=== PATIENT | male | born 1965 | race Caucasian/White ===

== ENCOUNTER 2019-09-28 20:47 | Emergency (ER) | payer OTHER, SELFPAY ==
[2019-09-28 20:52] VITALS: BP 154/93; PULSE 90; RESP 16; TEMP 36.6; O2SAT 96; BMI 26.4
[2019-09-28] MEDS: LACTATED RINGERS 1,000 ML 1000 ML IV (21:08)
[2019-09-28] MEDS: KETOROLAC 60 MG/2 ML VIAL 15 MG IV (21:08)
[2019-09-28 21:10] LABS: Add Manual Diff / Slide Review NO; Basophils Absolute Auto 100 /uL (0-100); Basophils Percent Auto 0.6 % (0-2); Eosinophils Absolute Auto 200 /uL (0-450); Eosinophils Percent Auto 2.5 % (2-4); Hematocrit 42.2 % (41-53); Hemoglobin 14.6 g/dL (13.5-17.5); Lymphocytes Absolute Auto 2000 /uL (1100-4500); Mean Corpuscular HGB Conc 34.5 % (30-36); Mean Corpuscular Hemoglobin 31.5 PG (26-34); Mean Corpuscular Volume 91.4 fL (80-100); Monocytes Absolute Auto 800 /uL (0-900); Monocytes Percent Auto 9.8 % (3-14); Neutrophils Absolute Auto 5400 /uL (1500-7000); Neutrophils Percent Auto 64.1 % (50-75); Platelet Count 212 X10^3/uL (150-400); Red Blood Cell Count 4.62 X10^6/uL (4.5-5.9); Red Cell Distribution Width 13.6 % (11.6-14.8); White Blood Cell Count 8.5 X10^3/uL (4.5-11.0)
[2019-09-28 21:16] LABS: BUN Creatinine Ratio 15.9 (6-22); Blood Urea Nitrogen 21 mg/dL (9-20); Calcium 9.5 mg/dL (8.4-10.2); Carbon Dioxide 26 mmol/L (22-32); Chloride 102 mmol/L (98-107); Estimated Glomerular Filt Rate 56.7 mL/min (>60); Glucose 126 mg/dL (70-100); HEMOLYSIS < 15 (0-50); Potassium 3.8 mmol/L (3.4-5.1); Sodium 136 mmol/L (137-145)
--- NOTE | 2019-09-28 21:31 | DI.CT.S_ITS ---
PROCEDURE: CT KIDNEY URETER BLADDER (KUB) INDICATIONS: R flank pain TECHNIQUE: Noncontrast 5 mm thick sections acquired from the diaphragms to the symphysis. 5 mm thick coronal and sagittal reformats were then performed. For radiation dose reduction, the following was used: automated exposure control, adjustment of mA and/or kV according to patient size. COMPARISON: None. FINDINGS: Image quality: Excellent. Lung bases: Lung bases are clear. Heart size is normal. Urinary system: Both kidneys are normal in size. No kidney stones. No hydronephrosis or perinephric fat stranding. Both ureters appear non-dilated throughout their expected courses. Bladder wall and shows mild diffuse thickening with incomplete distention. No calcified bladder stones. Other solid organs: Liver is enlarged with steatosis. Gallbladder is contracted but grossly unremarkable. Pancreas is normal in contours. Spleen is normal in size. No adrenal nodules. Peritoneum and bowel: Unenhanced bowel loops demonstrate normal wall thickness and caliber. Colonic diverticula. No free fluid or air. Nodes and vessels: No retroperitoneal or mesenteric adenopathy by size criteria. Aorta and inferior vena cava are normal in caliber. Abdominal wall: No ventral hernias. Pelvis: No free pelvic fluid. Fat-containing hernias are noted. Bones: No suspicious bony lesions. No vertebral body compression fractures. Stone attenuation measurements reference DELETE FROM FINAL REPORT Calcium oxalate: 1982-4943 HU. Hydroxyapatite: 4054-3452 HU. Uric acid: 200-450 HU. Struvite: 600-900 HU. Cystine: 600-1100 HU. IMPRESSION: 1. No nephro or ureterolithiasis. No bladder calculi. 2. Mild appearance of diffuse bladder wall thickening possibly secondary to incomplete distention. However, cystitis could have a similar imaging appearance recommend clinical correlation. Dictated by: Valarie Cheek M.D. on 09/28/2019 at 22:00 Approved by: Valarie Cheek M.D. on 09/28/2019 at 22:03
--- NOTE | 2019-09-28 22:14 | ED_ITS ---
HPI - Male Genitourinary General Chief complaint: Urogenital-Male Stated complaint: thinks has a kidney infection Time Seen by Provider: 09/28/19 20:48 Source: patient Mode of arrival: Ambulatory Limitations: no limitations History of Present Illness HPI Narrative: 53M nonsmoker with history of hypertension, hyperlipidemia, GERD and relatively frequent urinary tract infections presents with a chief complaint of a sudden onset right flank pain with some trouble urinating this evening. He denies any fever or chills. He denies any chest pain, shortness of breath, cough. He has had no exposure to persons of suspicion for COVID-19. 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 He denies any history of kidney stones. His pain is worse with motion and improves with rest. MD Complaint: dysuria and other Onset (ago): hour(s) Duration: constant Location: right flank Severity: moderate Quality: aching Relieving factors: rest Exacerbating factors: movement Associated symptoms: Reports dysuria Related Data Home Medications Medication Instructions Recorded Confirmed hydrochlorothiazide 25 mg PO DAILY 09/28/19 09/28/19 lisinopril 10 mg PO DAILY 09/28/19 09/28/19 omeprazole 20 mg PO DAILY 09/28/19 09/28/19 pravastatin 30 mg PO BEDTIME 09/28/19 09/28/19 Previous Rx's Medication Instructions Recorded cephalexin [Keflex] 500 mg PO QID 7 Days #28 cap 09/28/19 ketorolac 10 mg PO Q6H PRN #14 tab 09/28/19 Allergies Allergy/AdvReac Type Severity Reaction Status Date / Time No Known Drug Allergies Allergy Verified 09/28/19 21:09 Review of Systems Constitutional Constitutional: Denies chills, Denies fatigue, Denies fever(s), Denies frequent falls, Denies lethargy and Denies weakness Eyes Eyes: Denies change in vision, Denies eye discharge, Denies irritation and Denies loss of vision ENT Ears, Nose, Mouth, and Throat: Denies change in voice, Denies dizziness, Denies neck pain, Denies sore throat and Denies throat swelling Cardiovascular Cardiovascular: Denies chest pain, Denies irregular heart rhythm, Denies lightheadedness, Denies palpitations, Denies dyspnea, Denies dyspnea on exertion and Denies orthopnea Respiratory Respiratory: Denies cough, Denies dyspnea, Denies dyspnea on exertion and Denies wheezing Gastrointestinal Gastrointestinal: Denies abdominal pain, Denies change in bowel habits, Denies diarrhea, Denies nausea and Denies vomiting Genitourinary Genitourinary: Denies hematuria, Reports difficulty urinating, Reports flank pain, Denies urinary incontinence and Denies urinary urgency Musculoskeletal Musculoskeletal: Denies back pain, Denies muscle weakness, Denies neck pain, Denies numbness and Denies tingling Integumentary/Breasts Skin/Breast: Denies pruritus, Denies erythema, Denies rash and Denies wounds Neurologic Neurologic: Denies behavioral changes, Denies confusion, Denies dizziness, Denies frequent falls, Denies loss of vision, Denies numbness, Denies tingling and Denies weakness Psychiatric Psychiatric: Denies anxiety, Denies behavioral changes, Denies confusion, Denies depression, Denies homicidal ideation and Denies suicidal ideation Endocrine Endocrine: Denies fatigue, Denies flushing and Denies palpitations Hematologic/Lymphatic Hematologic/Lymphatic: Denies easy bruising Allergic/Immunologic Allergic/Immunologic: Denies urticaria, Denies throat swelling and Denies wheezing Patient History Medical History Urinary tract infection (Acute) alcohol intake frequency: a few times a month Substance Use Type: does not use Exam Narrative Exam Narrative: GENERAL: [53] year old patient appears stated age. Well- nourished, well-developed patient, in mild distress. Obviously uncomfortable, moving gingerly HEAD: Atraumatic. Normocephalic. EYES: Pupils equal round and reactive. Extraocular motions intact. No scleral icterus. No injection or drainage. ENT: Nose without bleeding, purulent drainage. Throat without erythema, tonsillar hypertrophy or exudate. Airway patent. NECK: Trachea midline. Non tender CARDIOVASCULAR: Regular rate and rhythm without murmurs, gallops, or rubs. RESPIRATORY: Clear to auscultation. Breath sounds equal bilaterally. No wheezes, rales, or rhonchi. GASTROINTESTINAL: Abdomen soft, non-tender, nondistended. EXTREMITIES: No edema or joint tenderness. BACK: Right flank tender to palpate in his costovertebral angle. No bony point tenderness, step-offs or crepitance NEURO: AOx3. SKIN: No rash or erythema of visible areas Initial Vital Signs Initial Vital Signs: Vital Signs Temperature 97.8 F 09/28/19 20:52 Pulse Rate 90 09/28/19 20:52 Respiratory Rate 16 09/28/19 20:52 Blood Pressure 154/93 H 09/28/19 20:52 Pulse Oximetry 96 09/28/19 20:52 Course Orders Ordered: ED Orders 09/28/19 20:51 Urine Culture Stat Urine Microscopic Stat 09/28/19 20:58 Basic Metabolic Panel Stat Complete Blood Count AUTO DIFF Stat 09/28/19 21:31 CT kidney ureter bladder (KUB) Stat Discontinued Medications Cefazolin Sodium (Keflex 250 Mg Prepack) 1 bottle MISC SEEINSTR ONE Stop: 09/28/19 23:03 Last Admin: 09/28/19 23:14 Dose: 500 mg Documented by: KRYSTYNA Lactated Ringer's (Lactated Ringers) 1,000 mls @ 1,000 mls/hr IV BOLUS ONE Stop: 09/28/19 21:53 Last Infusion: 09/28/19 23:14 Dose: 0 mls/hr Documented by: Admin: 09/28/19 21:08 Dose: 1,000 mls/hr Documented by: GLORY Ketorolac Tromethamine (Toradol) 15 mg IV NOW ONE Stop: 09/28/19 20:55 Last Admin: 09/28/19 21:08 Dose: 15 mg Documented by: GLORY Vital Signs Vital signs: Vital Signs - 8 hr 09/28/19 20:52 09/28/19 23:23 Temperature 97.8 F Pulse Rate 90 67 Respiratory Rate 16 15 Blood Pressure 154/93 H 125/60 Pulse Oximetry 96 96 MDM - Male Genitourinary Lab Data Result diagrams: 09/28/19 20:58 09/28/19 20:58 Labs: Lab Results 09/28/19 09/28/19 09/28/19 Range/Units 20:51 20:58 20:58 WBC 8.5 (4.5-11.0) X10^3/uL RBC 4.62 (4.5-5.9) X10^6/uL Hgb 14.6 (13.5-17.5) g/dL Hct 42.2 (41-53) % MCV 91.4 (80-100) fL MCH 31.5 (26-34) PG MCHC 34.5 (30-36) % RDW 13.6 (11.6-14.8) % Plt Count 212 (150-400) X10^3/uL Neut % (Auto) 64.1 (50-75) % Lymph % (Auto) 23.0 L (25-40) % [place] % (Auto) 9.8 (3-14) % Eos % (Auto) 2.5 (2-4) % Baso % (Auto) 0.6 (0-2) % Neut # (Auto) 5400 (9312-2102) /uL Lymph # (Auto) 2000 (1380-6865) /uL [place] # (Auto) 800 (0-900) /uL Eos # (Auto) 200 (0-450) /uL Baso # (Auto) 100 (0-100) /uL Sodium 136 L (137-145) mmol/L Potassium 3.8 (3.4-5.1) mmol/L Chloride 102 (98-107) mmol/L Carbon Dioxide 26 (22-32) mmol/L BUN 21 H (9-20) mg/dL Creatinine 1.32 H (0.66-1.25) mg/dL Estimated GFR 56.7 L (>60) mL/min BUN/Creatinine Ratio 15.9 (6-22) Glucose 126 H (70-100) mg/dL Calcium 9.5 (8.4-10.2) mg/dL Urine RBC 5-10/hpf H (0-5/HPF) Urine WBC >100/hpf H (0-5/HPF) Ur Squamous Epith Cells 0-1 /hpf (0-5/HPF) Urine Bacteria Moderate (10-30) H (None) Ur Culture Indicated? Specimen cultured Urine Dip Bedside Urine Glucose Negative Bedside Urine Bilirubin - Negative Bedside Urine Ketone - Negative Urine Specific [place] 1.025 Bedside Urine Occult Blood +++ Bedside Urine pH 6.0 Bedside Urine Protein ++ 100 Bedside Urine Urobilinogen - Negative Bedside Urine Nitrite + Positive Bedside Urine Leukocytes +++ 500 Esterase MDM Narrative Medical decision making narrative: Patient feels tremendous relief of symptoms after the above-stated therapies. And the patient has a history of urinary tract infections and states, from the beginning, that his symptoms feel consistent prior episodes. He has no systemic findings such as fever, chills nor nausea or vomiting. Urine is very convincing a, hence the decision to given antibiotic. Portions of his history a friend raise suspicion for kidney stone but no suggestion of this diagnosis noted on the CT scan. Patient given return precautions, encouragement to follow up closely with his primary and urology. Discharge Plan Departure Patient Disposition: Home Clinical Impression: Urinary tract infection Qualifiers: Urinary tract infection type: acute pyelonephritis Qualified Code(s): N10 - Acute pyelonephritis Discharge Date/Time: 09/28/19 23:24 Instructions: DI for Kidney Infection Activity Restrictions/Additional Instructions: *You have been diagnosed with [acute urinary infection with possible kidney involvement] *What to do: *Take medications as directed *Follow up with your primary care provider in 2-3 days, call for an appointment. Let them know you were seen in the Emergency Department and that we ask that you be seen in follow up. I've included the contact info for our urologist Dr. Larkin, but also Dr. Jeter given your prior history with Dr. Micky paulino at [facility] *Return to ER if you should have any new, worsening or concerning symptoms Prescriptions: New cephalexin [Keflex] 500 mg capsule 500 mg PO QID 7 Days Qty: 28 RF: 0 ketorolac 10 mg tablet 10 mg PO Q6H PRN (Reason: pain) Qty: 14 RF: 0 No Action lisinopril 10 mg tablet 10 mg PO DAILY RF: 0 omeprazole 20 mg capsule,delayed release(DR/EC) 20 mg PO DAILY RF: 0 pravastatin 20 mg tablet 30 mg PO BEDTIME RF: 0 hydrochlorothiazide 25 mg tablet 25 mg PO DAILY RF: 0 Referrals: Fito Jeter MD [Non-Staff] - Ramy Larkin MD [Physician] -
[2019-09-28 23:02] LABS: RBC Urine 5-10/HPF (0-5/HPF)
[2019-09-28 23:03] LABS: Bacteria Urine Moderate (10-30); Culture Indicated Urine Specimen Cultured; Squamous Epithelial Cell Urine 0-1 /HPF (0-5/HPF); WBC Urine >100/HPF (0-5/HPF)
[2019-09-28] MEDS: cephALEXin 250 MG PREPACK 1 BOTTLE MISC (23:14)
[2019-09-28 23:23] VITALS: BP 125/60; PULSE 67; RESP 15; O2SAT 96
== END 2019-09-28 23:24 | disposition home or self-care (01) ==
PROVIDERS: Emergency Provider Emergency Medicine
DX: N10 Acute pyelonephritis (principal); I10 Essential (primary) hypertension; E78.5 Hyperlipidemia, unspecified; K21.9 Gastro-esophageal reflux disease without esophagitis; R10.9 Unspecified abdominal pain
CPT/HCPCS: 36415; 51798; 74176; 80048; 81003; 81015; 85025; 87077; 87086; 87186; 96361; 96374; 99284; J1885

== ENCOUNTER → 2023-07-27 06:48 | Outpatient (CLI) | payer OTHER, SELFPAY ==
--- NOTE | 2023-07-27 06:50 | DI.US.S_ITS ---
PROCEDURE: US PERIPH VENOUS LOW EXTREM LT INDICATIONS: PAIN. RECENT TRAVEL. TECHNIQUE: Real-time imaging, as well as color and pulse Doppler interrogation, were performed of the lower extremity deep veins from the inguinal ligament to the popliteal fossa, with documentation of the visualized calf veins. COMPARISON: None. FINDINGS: The common femoral, femoral, popliteal, and the visualized calf veins are normally compressible, and free of intraluminal thrombus. Color and pulse Doppler demonstrate normal phasic intraluminal flow. There is normal augmentation response to distal compression maneuver. IMPRESSION: No findings of lower extremity deep venous thrombosis. Dictated by: César Elliott M.D. on 07/27/2023 at 8:54 Approved by: César Elliott M.D. on 07/27/2023 at 8:55
== END ==
PROVIDERS: PCP Family Medicine; Referring Provider Internal Medicine; Visit Provider Internal Medicine
DX: M79.662 Pain in left lower leg (principal)
CPT/HCPCS: 93971

== ENCOUNTER → 2023-08-01 10:22 | Outpatient (CLI) | payer OTHER, SELFPAY ==
--- NOTE | 2023-08-01 | DI.RAD.S_ITS ---
PROCEDURE: XR HIP W PEL IF DONE LT 2V INDICATIONS: LEFT HIP PAIN TECHNIQUE: AP pelvis with lateral view(s) of the left hip(s). COMPARISON: None. FINDINGS: Bones: No fractures or dislocations. Mild bilateral hip joint osteoarthritic changes are seen. No evidence of avascular necrosis of femoral head. Pelvic ring appears intact. No suspicious bony lesions. Soft tissues: The visualized bowel gas pattern is normal. No suspicious soft tissue calcifications. IMPRESSION: No pelvic or hip fracture. Mild symmetric appearing bilateral hip joint osteoarthritis. No evidence of avascular necrosis. Dictated by: Lei Hodges M.D. on 08/01/2023 at 12:06 Approved by: Lei Hodges M.D. on 08/01/2023 at 12:06
== END ==
PROVIDERS: PCP Family Medicine; Referring Provider Internal Medicine; Visit Provider Internal Medicine
DX: M25.552 Pain in left hip (principal)
CPT/HCPCS: 73502

== ENCOUNTER 2024-01-09 12:55 | Day surgery (SDC) | payer OTHER, SELFPAY ==
[2023-11-22 12:19] VITALS: BMI 27.3
[2023-11-28 08:46] VITALS: BP 56/32; PULSE 114; RESP 24; O2SAT 99
[2023-11-28 08:49] VITALS: BP 97/60; PULSE 89; RESP 12; TEMP 37.6; O2SAT 99
[2024-01-09 13:17] VITALS: BP 141/89; PULSE 70; RESP 17; TEMP 37.3; O2SAT 96
[2024-01-09 13:27] VITALS: BMI 27.1
[2024-01-09] MEDS: LACTATED RINGERS 1,000 ML 42 ML IV (13:34)
[2024-01-09 13:51] LABS: COVID19 -Nasal RAPID Negative (Negative)
--- NOTE | 2024-01-09 13:59 | P.HP_ITS ---
History of Present Illness History of Present Illness Date Patient Seen: 01/09/24 Time Patient Seen: 14:00 Chief complaint: SDC Narrative: Andrea is a 58-year-old man who presents with a left inguinal hernia, possible right inguinal hernia and an umbilical hernia. See the previous office note for details. [facility] Medical History (Updated 09/18/23 @ 17:20 by Jadiel Boo MD) Urinary tract infection Social History household members: spouse Smoking Status: Never smoker alcohol intake: current Meds Home Medications and Allergies Home Medications Medication Instructions Recorded Confirmed Type hydrochlorothiazide 25 mg tablet 25 mg PO DAILY 09/28/19 01/09/24 History lisinopril 10 mg tablet 10 mg PO DAILY 09/28/19 01/09/24 History omeprazole 20 mg capsule,delayed 20 mg PO DAILY 09/28/19 01/09/24 History release pravastatin 20 mg tablet 30 mg PO BEDTIME 09/28/19 01/09/24 History Allergies Allergy/AdvReac Type Severity Reaction Status Date / Time No Known Drug Allergies Allergy Verified 01/09/24 13:04 Exam Vital Signs (past 8 hours): - 01/09/24 13:17 Temperature 99.1 F Pulse Rate 70 Respiratory Rate 17 Blood Pressure 141/89 H Pulse Oximetry 96 Oxygen Delivery Method Room Air Oxygen Delivery Method Room Air Narrative Exam Narrative: Left inguinal and umbilical hernia Objective Labs Labs: Laboratory Results - last 24 hr 01/09/24 13:32 SARS-CoV-2 (PCR) Negative Assessment & Plan Assessment and plan (1) Left inguinal hernia: Status: Acute (2) Umbilical hernia: Qualifiers: Obstruction and gangrene presence: without obstruction or gangrene Qualified Code(s): K42.9 - Umbilical hernia without obstruction or gangrene Status: Acute Plan Proceed with laparoscopic left, possible right inguinal hernia repair with mesh and umbilical hernia repair. Time-Based Coding :: [TOTAL MINUTES] spent with patient and on the chart (including review of chart, obtaining history, exam, reviewing outside data, placing orders, documenting exam and treatment plan, and counseling patient) on [DATE].
[2024-01-09] MEDS: CEFAZOLIN 2 GM/100 ML PREMIX 100 ML IV (14:25)
[2024-01-09] MEDS: ACETAMINOPHEN IV 1,000 MG/100 ML VIAL 400 MG IV (14:32)
--- NOTE | 2024-01-09 14:55 | SUR.OPER ---
Supine on padded OR bed, head on pillow, PINK PAD IN PLACE, arms padded and tucked at sides, legs uncrossed, safety belt at thigh, tape over blanket over lower legs . CONFIRMED BY DR. DIXON.
[2024-01-09] MEDS: BUPIVACAINE 0.5% W/ EPI (PF) 30 ML VIAL INJ (15:05)
--- NOTE | 2024-01-09 15:46 | PM.OP.1 ---
Operative Date/Time/Diagnoses Date of procedure: 01/09/24 Time of procedure: 15:46 Pre-op diagnosis: Left inguinal hernia and umbilical hernia Post-op diagnosis: same Procedure & Clinicians Procedure: Laparoscopic left inguinal hernia repair with mesh Open umbilical hernia repair with mesh Same procedure as scheduled: Yes Surgeon: Jadiel Boo [employer] Machine Operator: Jacob Joseph Anesthesia Type: General Operative Notes Procedure in detail: The patient was given preoperative antibiotics. The patient was brought to the operating room, placed on the table in the supine position with the arms tucked and general anesthesia was induced. The abdomen was prepped and draped in the usual fashion. A time-out was performed. A 1 cm infraumbilical incision was created and dissection was carried down to the fascia. The hernia sac was dissected free and opened sharply and the peritoneum was entered under direct vision. The Kristina port was placed and the abdomen was insufflated to 15 mmHg. The camera was inserted, there was no evidence of any injury from the entry. There was a direct left inguinal hernia. There was no right inguinal hernia. 5 mm ports were placed under direct vision in the mid left and mid right abdomen. The patient was positioned in Trendelenburg. We created a left peritoneal flap. The peritoneum was dissected off the left cord structures and the Manuel's ligament was exposed. A large left Bard mesh was brought in and placed over the defect with the medial edge against Manuel's ligament. We then closed the peritoneal flap with a running 3-0 barbed suture. There was a small defect in the peritoneal flap and the redundant sac was tacked over the defect to cover the mesh completely. We took one last look around the abdomen and saw no other abnormalities. The suture was removed and accounted for. The 5 mm ports were removed under direct vision. The abdomen was desufflated. The Kristina port was removed. We then cleared the subcutaneous adipose tissue off of the fascia around the umbilical hernia. The umbilical hernia was 2 cm across. We closed the defect with multiple interrupted 0 Ethibond sutures in a transverse fashion. A small piece of mesh was trimmed to fit over the fascia and attached with Tisseel. The umbilical skin was tacked down to the deep tissue. The skin incisions were closed with 4 Monocryl, Steri-Strips and Band-Aids. EBL: 10 mL Jacob HENRIQUEZ provided assistance with exposure, retraction and closure of incisions. Post-operative Condition: stable Disposition: PACU
[2024-01-09 15:58] VITALS: BP 149/92; PULSE 77; RESP 12; TEMP 36.4; O2SAT 98
[2024-01-09 16:03] VITALS: BP 139/96; PULSE 76; RESP 12; O2SAT 97
[2024-01-09 16:08] VITALS: BP 147/99; PULSE 78; RESP 12; O2SAT 97
[2024-01-09 16:13] VITALS: BP 136/92; PULSE 68; RESP 13; O2SAT 95
[2024-01-09 16:18] VITALS: BP 135/94; PULSE 68; RESP 12; TEMP 36.3; O2SAT 96
== END 2024-01-09 17:00 | disposition home or self-care (01) ==
PROVIDERS: PCP Family Medicine; Referring Provider Surgery; Visit Provider Surgery
PROC: 0YQ64ZZ Repair Left Inguinal Region, Percutaneous Endoscopic Approach (ICD-10-PCS; CPT 49650; principal; 2024-01-09 14:00)
PROC: (CPT 49650; 2024-01-09 14:00)
DX: K40.90 Unilateral inguinal hernia, without obstruction or gangrene, not specified as recurrent (principal); K42.9 Umbilical hernia without obstruction or gangrene; Z11.52 Encounter for screening for COVID-19
CPT/HCPCS: 49650; 87635; J0136; J0330; J0690; J1170; J2250; J2405; J2704; J3010; J3490